=== PATIENT | female | born 1965 | race Caucasian/White ===

== ENCOUNTER → 2020-10-29 | Outpatient (CLI) | payer OTHER ==
[~2020-10-29] MED LIST: IBUPROFEN800 MG PO; PROAIR DIGIHAL90 MCG INH; TESSALON PERLE100 MG PO; ZITHROMAX250 MG PO
== END ==
LOC: MRI 12:40
DX: M54.5 Low back pain (principal); G89.29 Other chronic pain; M25.552 Pain in left hip; M25.551 Pain in right hip; G62.9 Polyneuropathy, unspecified; M51.26 Other intervertebral disc displacement, lumbar region; M47.816 Spondylosis without myelopathy or radiculopathy, lumbar region; M48.061 Spinal stenosis, lumbar region without neurogenic claudication; M51.27 Other intervertebral disc displacement, lumbosacral region; M47.817 Spondylosis without myelopathy or radiculopathy, lumbosacral region
CPT/HCPCS: 72148

== ENCOUNTER 2021-02-25 18:01 | Emergency (ER) | payer OTHER | END 2021-02-25 20:00 | disposition home or self-care (01) | LOC: ER1 18:01 | DX: S80.02XA Contusion of left knee, initial encounter (principal); E11.9 Type 2 diabetes mellitus without complications; I10 Essential (primary) hypertension; Z90.710 Acquired absence of both cervix and uterus; F17.200 Nicotine dependence, unspecified, uncomplicated; W01.0XXA Fall on same level from slipping, tripping and stumbling without subsequent striking against object, initial encounter; Z88.2 Allergy status to sulfonamides | CPT/HCPCS: 73564; 99283 ==

== ENCOUNTER 2022-03-27 13:11 | Emergency (ER) | payer OTHER ==
[2022-03-27 14:29] LABS: HEMOGLOBIN 14.9 gm/dl (12.3-15.3); RED BLOOD COUNT 4.72 M/UL (4.00-5.10); WHITE BLOOD COUNT 5.7 K/UL (4.5-11.0)
[2022-03-27 14:35] LABS: BUN/CREATININE RATIO 16 (0-10)
[2022-03-27] MEDS ORDERED: BENTYL 20MG TAB20 MG PO (16:28)
== END 2022-03-27 16:46 | disposition home or self-care (01) ==
LOC: ER1 13:11
DX: R10.9 Unspecified abdominal pain (principal); E11.9 Type 2 diabetes mellitus without complications; E78.5 Hyperlipidemia, unspecified; I10 Essential (primary) hypertension; F17.210 Nicotine dependence, cigarettes, uncomplicated; Z88.2 Allergy status to sulfonamides
CPT/HCPCS: 80053; 81001; 82272; 83690; 85025; 96361; 96374; 99284; J1885; Q9967